=== PATIENT | female | born 1975 | race Caucasian/White ===

== ENCOUNTER → 2020-11-09 06:31 | Outpatient (CLI) | payer SELFPAY ==
[2020-11-09 20:06] LABS: SARS-CoV-2 RNA PCR Negative
== END ==
PROVIDERS: PCP Family Medicine; Visit Provider Physician Assistant
DX: R09.89 Other specified symptoms and signs involving the circulatory and respiratory systems (principal); Z20.822 Contact with and (suspected) exposure to COVID-19
CPT/HCPCS: C9803; U0003; U0005